=== PATIENT | female | born 1995 | race Hispanic/Latino ===

== ENCOUNTER 2025-03-22 13:31 | Outpatient (CLI) | payer OTHER | END 2025-03-22 13:32 | disposition home or self-care (01) | LOC: CSHULT 13:31 | PROVIDERS: ATTEND Family Medicine | DX: O09.893 Supervision of other high risk pregnancies, third trimester (principal); Z3A.33 33 weeks gestation of pregnancy | CPT/HCPCS: 76805 ==

== ENCOUNTER 2025-04-22 06:14 | Inpatient (IN) | payer OTHER ==
[2025-04-22] MEDS ORDERED: hydrALAZINE 20 MG/ML VIAL SLOW IVP PRN ×3 (06:44→15:31)
[2025-04-22 06:49] VITALS: BMI 21.4
[2025-04-22] MEDS ORDERED: Acetaminophen 500 MG TAB PO PRN (08:26)
[2025-04-22] MEDS ORDERED: Diphenoxylate HCl/Atropine Tablet PO PRN (08:26)
[2025-04-22] MEDS ORDERED: Methylergonovine 0.2 MG/ML VIAL IM PRN (08:26)
[2025-04-22] MEDS ORDERED: Ondansetron PF 4 MG/2 ML Vial IVP PRN ×3 (08:26→15:31)
[2025-04-22] MEDS ORDERED: Carboprost 250 MCG/ML AMP IM PRN (08:26)
[2025-04-22] MEDS ORDERED: Tranexamic Acid 1,000 MG/10 ML VIAL IVP PRN (08:26)
[2025-04-22] MEDS ORDERED: Famotidine/PF 20 mg/2ml Vial SLOW IVP PRN (08:26)
[2025-04-22] MEDS ORDERED: Bicitra 30 ML UDCUP PO PRN (08:26)
[2025-04-22] MEDS ORDERED: Oxytocin 30 units/NS 500 ML 500 ML IV SCH (08:30)
[2025-04-22 08:49] LABS: Hematocrit 39.7 % (34.9-44.5); Hemoglobin 13.2 g/dL (12.0-15.5); Mean Corpuscular Hemoglobin 30.7 pg (27.0-33.0); Mean Corpuscular Volume 92.3 fL (81.6-98.3); Platelet Count 182 10x3/uL (150-450); Red Blood Cell (RBC) Count 4.30 10x6/uL (3.90-5.03); White Blood Cell (WBC) Count 6.96 10x3/uL (3.5-10.5)
[2025-04-22 09:24] LABS: Hep B Surf Ag - L&D Non-Reactive S/CO (NonReactive)
[2025-04-22 09:26] LABS: Syphilis Antibody Index 0.14 S/CO (<1.00 Non-Reactive)
[2025-04-22] MEDS ORDERED: diphenhydrAMINE 50 MG/ML VIAL IVP PRN (11:28)
[2025-04-22] MEDS ORDERED: HYDROmorphone 0.5 MG/0.5 ML SYRINGE SLOW IVP PRN (11:28)
[2025-04-22] MEDS ORDERED: Meperidine HCl/PF 25 MG (1 mL) VIAL SLOW IVP PRN (11:28)
[2025-04-22] MEDS ORDERED: Ketorolac Tromethamine 30 MG (1 mL) VIAL IVP SCH (11:30)
[2025-04-22] MEDS ORDERED: NO NARCS FOR 12 HOURS FS PRN (11:30)
[2025-04-22] MEDS: Ondansetron PF 4 MG/2 ML Vial IVP PRN (12:41)
[2025-04-22] MEDS ORDERED: Ketorolac Tromethamine 30 MG (1 mL) VIAL IVP PRN (13:00)
[2025-04-22] MEDS ORDERED: Simethicone Chewable 80 MG TAB PO PRN (15:31)
[2025-04-22] MEDS ORDERED: Lanolin Ointment 7 GM TUBE TOP PRN (15:31)
[2025-04-22] MEDS ORDERED: Boostrix 0.5 ML (Tdap) VIAL (>/=7 yrs of age) IM ONE (15:31)
[2025-04-22] MEDS ORDERED: Bisacodyl 10 MG SUPP PR PRN (15:31)
[2025-04-22] MEDS ORDERED: diphenhydrAMINE 25 MG CAP PO PRN (15:31)
[2025-04-22] MEDS: CEFAZOLIN 2 GM VIAL ONE (15:53)
[2025-04-22] MEDS: Ondansetron PF 4 MG/2 ML Vial ONE ×2 (15:54→15:55)
[2025-04-22] MEDS: Oxytocin 10 UNITS/ML VIAL ONE ×2 (15:54→15:55)
[2025-04-22] MEDS: Erythromycin Base 0.5% Oint 1 GM TUBE ONE (15:54)
[2025-04-22] MEDS: Phenylephrine 40 MG/NS 250 ML 250 ML ONE (15:54)
[2025-04-22] MEDS: Dexamethasone 10 MG/ML VIAL ONE (15:55)
[2025-04-22] MEDS: Ketorolac Tromethamine 30 MG (1 mL) VIAL IVP SCH (17:06)
[2025-04-22] MEDS: Ferrous Sulfate 325 MG TAB PO SCH (22:46)
[2025-04-22] MEDS ORDERED: Meperidine HCl/PF 25 MG (1 mL) VIAL IM PRN (23:31)
[2025-04-23 03:48] LABS: Hematocrit 33.2 % (34.9-44.5); Hemoglobin 11.3 g/dL (12.0-15.5); Mean Corpuscular Hemoglobin 31.9 pg (27.0-33.0); Mean Corpuscular Volume 93.8 fL (81.6-98.3); Platelet Count 169 10x3/uL (150-450); Red Blood Cell (RBC) Count 3.54 10x6/uL (3.90-5.03); White Blood Cell (WBC) Count 10.75 10x3/uL (3.5-10.5)
[2025-04-23] MEDS: HYDROcodone/Acetaminophen 10/325 mg Tablet PO PRN ×2 (05:50→21:17)
[2025-04-23] MEDS: Ibuprofen 800 MG TAB PO SCH (18:04)
[2025-04-23] MEDS: Acetaminophen 325 MG TAB PO PRN (21:17)
[2025-04-24 07:39] VITALS: BP 108/78; TEMP 98.1
== END 2025-04-24 14:35 | disposition home or self-care (01) | DRG 788 ==
LOC: CSHLD/OP 06:14 → CSHLD 11:22 → CSHPED 13:33
PROVIDERS: ADMIT Family Medicine; ATTEND Family Medicine
PROC: 10D00Z1 Extraction of Products of Conception, Low, Open Approach (ICD-10-PCS; principal; 2025-04-22)
DX: O34.211 Maternal care for low transverse scar from previous cesarean delivery (principal); Z3A.37 37 weeks gestation of pregnancy; Z37.0 Single live birth; Z79.899 Other long term (current) drug therapy
CPT/HCPCS: 36415; 51702; 85027; 86780; 86850; 86900; 86901; 87340; 99285; C1889; J1100; J1885; J2274; J2405; J2550; J2590; J3430